=== PATIENT | male | born 1980 | race Caucasian/White ===

== ENCOUNTER → 2020-02-08 09:52 | Outpatient (BNVA) | payer SELFPAY | PROVIDERS: Family Provider Family Medicine; PCP Family Medicine; Visit Provider Urology | DX: N31.9 Neuromuscular dysfunction of bladder, unspecified (principal); G35 Multiple sclerosis | CPT/HCPCS: 81001 ==

== ENCOUNTER 2020-02-24 07:59 | Outpatient (CLI) | payer MEDICAID, SELFPAY ==
[2020-02-24] MEDS: diphenhydrAMINE 50 mg/mL SDV 1mL 25 MG IVP (08:30)
[2020-02-24] MEDS: acetaminophen 500 mg Tablet 1000 MG PO (09:56)
[2020-02-24] MEDS: diphenhydrAMINE 50 mg/mL SDV 1mL IVP (10:44)
--- NOTE | 2020-02-24 16:04 | PC.NURSE ---
IV push premeds given by Bernie Alonzo RN as documented on the JAN. PO premedications given by Manuela Castro LPN as documented on the JAN. Infusion was initiated at 200 ml/hr as directed by physician at 0955. Patient tolerating with no s/s of reaction. 1044 Patient complains of itching on his skin and tickling in his throat. Visual red raised rash on hairline of scalp. IV stopped and physician notified. Additional 50mg of benadryl given to the patient by Dr. Radha Davis MD and flushed with 10 ml of NS. Patient monitored and stated after 5 minutes he felt better and denied itching or tingling in his throat or on skin. IV resumed. Patient continued to be visually monitored for 30 minutes then given call button to ring nursing if need arose. 1130 rounded on patient need to use the restroom. Helped patient to the restroom and back to infusion chart. 1255 IV completed, no visual s/s of rash on patient and denies any itching or tickling or throat or skin. IV was flushed and removed by Christine Rocha LPN as documented on the JAN. Patient was given next infusion appointment and reminded of reactions s/s and to go to the nearest ED if he was to experience any reaction that he was not comfortable coming to the clinic to be evaluated for during business hours. Infusion time 0955-12:55= 3 hours total infusion time
== END 2020-02-24 08:00 | disposition home or self-care (01) ==
LOC: NSACUTE 08:00
PROVIDERS: Family Provider Family Medicine; PCP Family Medicine; Visit Provider Specialist
DX: G35 Multiple sclerosis (principal); Z87.891 Personal history of nicotine dependence
CPT/HCPCS: 96375; 96413; 96415; 99214; J2350; J7040

== ENCOUNTER 2020-02-24 13:20 | Outpatient (CLI) | payer MEDICAID, SELFPAY ==
[2020-02-24 14:08] LABS: Glomerular Filtration Rate 93.9 mL/min (90-130)
== END 2020-02-24 13:21 | disposition home or self-care (01) ==
LOC: LAB 13:22
PROVIDERS: Family Provider Family Medicine; Visit Provider Specialist
DX: G35 Multiple sclerosis (principal)
CPT/HCPCS: 36415; 82565

== ENCOUNTER → 2020-03-18 08:04 | Outpatient (BNVA) | payer MEDICAID, SELFPAY | PROVIDERS: Family Provider Family Medicine; Visit Provider Counselor Mental Health | DX: F41.1 Generalized anxiety disorder (principal); F43.10 Post-traumatic stress disorder, unspecified; F33.2 Major depressive disorder, recurrent severe without psychotic features | CPT/HCPCS: 90834 ==

== ENCOUNTER → 2020-03-25 08:33 | Outpatient (BNVA) | payer MEDICAID, SELFPAY | PROVIDERS: Family Provider Family Medicine; Visit Provider Counselor Mental Health | DX: F41.1 Generalized anxiety disorder (principal); F43.11 Post-traumatic stress disorder, acute | CPT/HCPCS: 90834 ==

== ENCOUNTER → 2020-04-08 07:46 | Outpatient (BNVA) | payer MEDICAID, SELFPAY | PROVIDERS: Family Provider Family Medicine; Visit Provider Counselor Mental Health | DX: F41.1 Generalized anxiety disorder (principal); F43.11 Post-traumatic stress disorder, acute | CPT/HCPCS: 90834 ==

== ENCOUNTER → 2020-04-15 08:14 | Outpatient (BNVA) | payer MEDICAID, SELFPAY | PROVIDERS: Family Provider Family Medicine; Visit Provider Counselor Mental Health | DX: F41.1 Generalized anxiety disorder (principal); F43.11 Post-traumatic stress disorder, acute | CPT/HCPCS: 90834 ==

== ENCOUNTER → 2020-04-21 08:35 | Outpatient (BNVA) | payer MEDICAID, SELFPAY | PROVIDERS: Family Provider Family Medicine; Visit Provider Counselor Mental Health | DX: F41.1 Generalized anxiety disorder (principal); F43.11 Post-traumatic stress disorder, acute | CPT/HCPCS: 90832 ==

== ENCOUNTER → 2020-04-29 08:00 | Outpatient (BNVA) | payer MEDICAID, SELFPAY | PROVIDERS: Family Provider Family Medicine; Visit Provider Counselor Mental Health | DX: F41.1 Generalized anxiety disorder (principal); F43.11 Post-traumatic stress disorder, acute | CPT/HCPCS: 90834 ==

== ENCOUNTER → 2020-05-06 09:08 | Outpatient (BNVA) | payer MEDICAID, SELFPAY | PROVIDERS: Family Provider Family Medicine; Visit Provider Counselor Mental Health | DX: F43.11 Post-traumatic stress disorder, acute (principal); F41.1 Generalized anxiety disorder | CPT/HCPCS: 90834 ==

== ENCOUNTER → 2020-05-13 08:01 | Outpatient (BNVA) | payer MEDICAID, SELFPAY | PROVIDERS: Family Provider Family Medicine; Visit Provider Counselor Mental Health | DX: F43.11 Post-traumatic stress disorder, acute (principal); F41.1 Generalized anxiety disorder | CPT/HCPCS: 90834 ==

== ENCOUNTER → 2020-06-02 08:38 | Outpatient (BNVA) | payer MEDICAID, SELFPAY | PROVIDERS: Family Provider Family Medicine; Visit Provider Counselor Mental Health | DX: F33.41 Major depressive disorder, recurrent, in partial remission (principal); F41.1 Generalized anxiety disorder; F43.11 Post-traumatic stress disorder, acute | CPT/HCPCS: 90834 ==

== ENCOUNTER 2020-08-29 08:14 | Outpatient (CLI) | payer MEDICAID, SELFPAY ==
[2020-08-29] MEDS: acetaminophen 500 mg Tablet 1000 MG PO (08:45)
[2020-08-29] MEDS: diphenhydrAMINE 50 mg/mL SDV 1mL 25 MG IVP (09:15)
== END 2020-08-29 08:15 | disposition home or self-care (01) ==
LOC: NSACUTE 08:17
PROVIDERS: Family Provider Family Medicine; Visit Provider Specialist
DX: G35 Multiple sclerosis (principal)
CPT/HCPCS: 96375; 99214; J2350; J7040